=== PATIENT | male | born 1935 | race Two or more races ===

== ENCOUNTER 2018-12-16 07:34 | Emergency (ER) | payer OTHER ==
[~2018-12-16] VITALS: Ht 167.6 cm; Wt 78.0 kg
[2018-12-16] MEDS ORDERED: LOSARTAN POTASS50 MG (08:15)
== END 2018-12-16 12:04 | disposition home or self-care (01) ==
LOC: ER 07:34
DX: R33.8 Other retention of urine (principal)

== ENCOUNTER 2019-03-06 00:39 | Emergency (ER) | payer OTHER ==
[~2019-03-06] VITALS: Ht 167.6 cm; Wt 79.4 kg
[~2019-03-06 00:39] MED LIST: LOSARTAN POTASS50 MG
[2019-03-06] MEDS ORDERED: TAMS0.4C PO (01:18)
== END 2019-03-06 01:40 | disposition home or self-care (01) ==
LOC: ER 00:39
DX: R33.8 Other retention of urine (principal)

== ENCOUNTER 2019-03-16 22:46 | Emergency (ER) | payer OTHER ==
[~2019-03-16] VITALS: Ht 167.6 cm; Wt 78.0 kg
[~2019-03-16 22:46] MED LIST changes: +TAMS0.4C PO
== END 2019-03-17 04:39 | disposition home or self-care (01) ==
LOC: ER 22:46
DX: R33.8 Other retention of urine (principal)

== ENCOUNTER 2019-04-22 05:36 | Emergency (ER) | payer OTHER ==
[~2019-04-22] VITALS: Ht 165.1 cm; Wt 77.1 kg
[2019-04-22] MEDS ORDERED: MIRALAX510 GM PO (07:08)
== END 2019-04-22 07:51 | disposition home or self-care (01) ==
LOC: ER 05:36
DX: K59.09 Other constipation (principal)

== ENCOUNTER 2019-08-15 23:56 | Emergency (ER) | payer OTHER ==
[~2019-08-15] VITALS: Ht 167.6 cm; Wt 73.9 kg
[~2019-08-15 23:56] MED LIST changes: +MIRALAX510 GM PO
[2019-08-16] MEDS ORDERED: CIPRO500 MG PO (07:45)
== END 2019-08-16 09:03 | disposition home or self-care (01) ==
LOC: ER 23:56
DX: R33.8 Other retention of urine (principal)

== ENCOUNTER 2020-03-05 16:00 | Emergency (ER) | payer OTHER ==
[~2020-03-05] VITALS: Ht 167.6 cm; Wt 76.2 kg
[~2020-03-05 16:00] MED LIST changes: +CIPRO500 MG PO
[2020-03-05] MEDS ORDERED: TAMS0.4C PO (16:35)
[2020-03-05] MEDS ORDERED: CIPRO500 MG PO (16:35)
== END 2020-03-05 17:34 | disposition home or self-care (01) ==
LOC: ER 16:00
DX: R33.8 Other retention of urine (principal)

== ENCOUNTER 2020-03-08 23:25 | Emergency (ER) | payer OTHER ==
[~2020-03-08] VITALS: Ht 165.1 cm; Wt 68.0 kg
[2020-03-09] MEDS ORDERED: KEFLEX500 MG PO (03:29)
== END 2020-03-09 03:39 | disposition home or self-care (01) ==
LOC: ER 23:25
DX: R33.8 Other retention of urine (principal); N39.0 Urinary tract infection, site not specified

== ENCOUNTER → 2021-09-15 | Emergency (ER) | payer OTHER ==
[~2021-09-15] VITALS: Ht 167.6 cm; Wt 81.6 kg
[~2021-09-15] MED LIST changes: +KEFLEX500 MG PO
== END | disposition home or self-care (01) ==
LOC: ER 08:38
DX: N40.1 Benign prostatic hyperplasia with lower urinary tract symptoms (principal); R33.8 Other retention of urine; I10 Essential (primary) hypertension